=== PATIENT | male | born 1975 | race Caucasian/White ===

== ENCOUNTER 2016-05-13 12:07 | Emergency (ER) | payer OTHER ==
[~2016-05-13] VITALS: Ht 172.7 cm; Wt 62.1 kg
[~2016-05-13 12:07] MED LIST: AMLODIPINE BESY10 M1 PO; XANAX1 M1 PO
[2016-05-13 12:12] VITALS: BP 164/106
[2016-05-13] MEDS ORDERED: VISTARIL50 M1 PO (12:29)
--- NOTE | 2016-05-13 12:30 | ED PSYCHIATRIC COMPLAINT ---
History of Present Illness General Chief Complaint: ETOH/Drug Related Complaint Stated Complaint: XANAX WITHDRAWAL Source: patient, old records Exam Limitations: no limitations Vital Signs & Intake/Output Vital Signs & Intake/Output Vital Signs Date Time Temp Pulse Resp B/P Pulse O2 O2 Flow FiO2 Ox Delivery Rate 05/13 1212 97.7 111 20 164/106 98 Room Air Allergies Coded Allergies: NO KNOWN ALLERGIES (03/28/16) Reconcile Medications Alprazolam (Xanax) 0.5 MG TAB 1 TAB PO BID ANXIETY (Reported) Amlodipine Besylate (Amlodipine) 10 MG TAB 1 TAB PO DAILY HEART (Reported) Hydroxyzine Pamoate (Vistaril) 50 MG CAPSULE 1 CAP PO TID PRN ANXIETY Triage Note: PT REQUESTING DETOX FROM XANAX. LAST DOSE 0100. STATES HE IS SUPPOSED TO TAKE 2 DOSES PER DAY. PT STATES HE IS SHORT BECAUSE HE HAS BEEN TAKING TOO MANY. PT DENIES SI/HI Triage Nurses Notes Reviewed? yes Onset: Gradual Duration: constant Timing: recent history Severity: mild Severity Numbers: 1 HPI: Patient is a 40-year-old male with a past medical history of anxiety who presents to emergency room for concerns of medication refill and which she states that in the past months she's been going through a difficult time with his long-standing girlfriend in which he states that they are going to break up in which he has doubled his dosing of his Xanax. Patient states that he ran out of the medication yesterday. Patient does live with his 2 kids in which she has full custody of. Patient denies any suicidal or homicidal ideation. Patient currently denies any symptoms of withdrawal however he read on the Internet of which all symptoms of other people and was concerned of withdrawal Denies any auditory or visual hallucinations. Denies any illness currently. Denies any illicit drug use denies any alcohol use (ADRIÁN LUTZ) Past History Travel History Traveled to [place] past 21 day No Medical History Any Pertinent Medical History? 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 No (ADRIÁN LUTZ) Review of Systems Review of Systems Constitutional: Reports: no symptoms. EENTM: Reports: no symptoms. Respiratory: Reports: no symptoms. Cardiovascular: Reports: no symptoms. GI: Reports: no symptoms. Genitourinary: Reports: no symptoms. Musculoskeletal: Reports: no symptoms. Skin: Reports: no symptoms. Neurological/Psychological: Reports: see HPI, anxiety. Hematologic/Endocrine: Reports: no symptoms. Immunologic/Allergic: Reports: no symptoms. All Other Systems: Reviewed and Negative (ADRIÁN LTUZ) Physical Exam Physical Exam General Appearance: well developed/nourished, no apparent distress, comfortable Neurological/Psychiatric: no motor/sensory deficits, awake Appearance/Memory/Insight: appropriate appearance, appropriate insight, denies illness Behavoir/Eye Contact/Speech: cooperative, normal speech, good eye contact Thoughts/Hallucinations: normal thought pattern, no apparent hallucination Comments: Well-developed well-nourished person in no acute distress HEENT: Normal EENT exam, extraocular motion intact, no nystagmus. Pupils equally round and reactive to light and accommodation. Nose is atraumatic. External auditory canal and Tympanic membranes clear. Pharynx normal. No swelling or edema. Neck: Supple, no lymphadenopathy, normal range of motion without pain or tenderness Back: Nontender, no CVA tenderness. Cardiovascular: Regular rate and rhythms no murmurs rubs or gallops, normal JVP Respiratory: Chest nontender. No respiratory distress.breath sounds clear to auscultation bilaterally Abdomen: Soft, nontender nondistended, no appreciable organomegaly. Normal bowel sounds. No ascites Extremity: No edema, no calf tenderness to palpation, normal and equal pulses. Neuro: Alert oriented x3, motor sensory normal, cranial nerves II through XII grossly intact. Skin: No appreciable rash on exposed skin, skin is warm and dry. Psych: Mood and affect is normal, memory and judgment is normal. SAD PERSONS Done? patient not suicidal (ADRIÁN LUTZ) Progress Differential Diagnosis: dementia, drug intoxication, drug overdose, drug withdrawal, electrolyte abnormality, encephalitis, hypoglycemia, hypothyroidism, IC hem/mass/tumor, meningitis Plan of Care: Patient currently looks well no apparent distress and is no concerns of anxiety or panic attacks. no concerns of withdrawal symptoms at this time. Patient denies any homicidal or suicidal ideation and shows no signs of intoxication. It is noted through the medical reconciliation the patient was prescribed a 30 day supply of alprazolam on April 30 in which I discussed with patient the importance of compliance He also states that he is willing to try to discontinue the Xanax which I advised patient to try and begin supplemental VISTARIL and if worsening symptoms - to return to emergency room and he will comply. Upon discharge patient looks well no apparent distress and will comply with discharge instructions and had no questions. (ADRIÁN LUTZ) Departure Departure Disposition: HOME OR SELF CARE Condition: Stable Clinical Impression Primary Impression: Anxiety Referrals: JANNA ARIAS (PCP/Family) Additional Instructions: As discussed please take your medications as directed. Follow-up tomorrow with your prescribing doctor for further evaluation and treatment. Begin the prescription of Vistaril to improve your anxiety symptoms. If symptoms worsen or IF YOU develop a new concerning symptom return to emergency room immediately. 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 I have also reviewed all the pertinent lab results and diagnostic results. I agree with the findings and the plan of care as documented in the PA's/LEATHER GOODS MAKER's documentation. [X] I have reviewed the ED Record and agree with the PA's/LEATHER GOODS MAKER's documentation. [] Additions or exceptions (if any) to the PAs/LEATHER GOODS MAKER's note and plan are summarized below: [] (RAFAEL PHILLIPS,JOSE JUAN)
== END 2016-05-13 12:53 ==
LOC: ERH 12:07
DX: F41.9 Anxiety disorder, unspecified (principal)

== ENCOUNTER 2016-06-29 12:57 | Inpatient (IN) | payer OTHER ==
[~2016-06-29] VITALS: Ht 177.8 cm; Wt 63.2 kg
[~2016-06-29 12:57] MED LIST changes: +VISTARIL50 M1 PO
[2016-06-29 13:41] LABS: ABSOLUTE BASOPHIL COUNT 0 /CUMM (0.0-0.2); ABSOLUTE EOSINOPHIL COUNT 0.8 /CUMM (0.0-0.7); ABSOLUTE GRANULOCYTE CT 6.3 /CUMM (1.4-6.5); ABSOLUTE LYMPH COUNT 2.1 /CUMM (1.2-3.4); ABSOLUTE MONOCYTE COUNT 0.6 /CUMM (0.10-0.60); BASOPHIL % 0.3 % (0.0-2.0); EOSINOPHIL % 8.4 % (0-5); GRANULOCYTE % 64.4 % (42.2-75.2); HEMATOCRIT 49.7 % (42-52); MEAN CORPUSCULAR HGB 29.7 PG (27.0-31.0); MEAN CORPUSCULAR HGB CONC 34.2 G/DL (33.0-37.0); MEAN CORPUSCULAR VOLUME 86.8 FL (80.0-94.0); MEAN PLATELET VOLUME 9.3 FL (7.4-10.4); PLATELET COUNT 217 /CUMM (130-400); RBC DISTRIBUTION WIDTH 13.9 % (11.5-14.5); RED BLOOD CELL CT 5.73 /CUMM (4.70-6.10); WHITE BLOOD CELL COUNT 9.9 /CUMM (4.8-10.8)
--- NOTE | 2016-06-29 13:45 | ED CARDIAC/CP/PALPITATIONS ---
History of Present Illness General Chief Complaint: Chest Pain Stated Complaint: C/P Source: patient Exam Limitations: no limitations Allergies Coded Allergies: NO KNOWN ALLERGIES (06/29/16) Reconcile Medications Alprazolam (Xanax) 1 MG TABLET 1 TAB PO BID ANXIETY (Reported) Amitriptyline HCl 25 GM POWDER 1 TAB PO DAILY DEPRESSION (Reported) Amlodipine Besylate 10 MG TABLET 1 TAB PO DAILY HEART (Reported) HASNT TAKEN SINCE 5 MONTHS Aspirin (Aspirin*) 81 MG TAB.CHEW 81 MG PO DAILY heart health Atorvastatin Calcium 40 MG TABLET 40 MG PO 1700 HLD Heparin (Heparin-1/2NS 25,000 Units/500) 25,000 UNIT/500 ML (50 UNIT/ML) IV.SOLN 1 BAG IV ONCE BLOOD THINNER Metoprolol Tartrate 25 MG TABLET 25 MG PO BID htn Nitroglycerin (Nitrostat) 0.3 MG TAB.SUBL 0.4 MG SL Q 5 MINUTES X 3 DOSE PRN CHEST PAIN Nitroglycerin (Nitro-Bid) 2 % OINT...G. 1 GM TOP Q6 chest pain Ticagrelor (Brilinta) 90 MG TABLET 1 TAB PO BID [facility] Triage Note: PT TO ED C/O BURNING C/P SINCE 1000 THIS AM. DENIES N/V/D. NO SOB OR DIFF BREATHING NOTED. 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 ALSO C/O B/L ARM PAIN. Triage Nurses Notes Reviewed? yes HPI: This patient is a 40-year-old male with a past medical history including anxiety presented to the emergency department today for diffuse chest burning. 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 He woke up at about 5:30 this morning with arm pain and chest burning. He reportedly fell back to sleep at about 9:30 and woke up again with worsening chest discomfort. The patient reported that originally he thought he was sore from working on his truck. He reported that the discomfort gets up to an 8 out of 10. He denied any difficulty breathing. The patient has seen a rig builder helper in the past, Dr. Patel, where he had to wear a Holter monitor for palpitations. He reported that he never went to the follow-up appointment. The patient reported that he does feel like his, "lower teeth are hurting." The patient has a significant cardiac history in his family. His mother had a triple bypass at the age of 39. His father had 2 heart attacks before the age of 50. 2 of his grandparents also of heart disease. The patient denied any nausea, vomiting, abdominal pain, fevers, chills, diaphoresis, back pain, or any numbness or tingling in his extremities. He did take an 81 mg baby aspirin this morning. (ANTOINE IRAHETA,KYLAH) Vital Signs & Intake/Output Vital Signs & Intake/Output Vital Signs Date Time Temp Pulse Resp B/P Pulse O2 O2 Flow FiO2 Ox Delivery Rate 06/30 09 75 122/84 06/30 0800 98.4 78 20 110/80 97 Room Air 06/30 0448 97 Room Air 06/30 0130 97 Room Air 06/30 0130 98.7 78 16 142/100 97 Room Air 06/30 0038 70 18 131/90 97 06/30 0000 97.4 79 18 135/85 98 Room Air 06/29 2216 96.5 72 18 161/112 98 Room Air 06/29 2149 78 164/111 06/29 2049 83 173/119 06/29 2010 97.5 83 18 166/114 99 Room Air 06/29 1944 162/110 06/29 1850 97.8 86 18 170/115 98 Room Air 06/29 1734 98.0 84 18 174/100 98 Room Air 06/29 1559 98.2 68 15 146/100 98 Room Air Room Air 06/29 1412 Room Air Room Air 06/29 1353 90 163/102 06/29 1353 86 173/114 06/29 1307 98.5 87 20 176/124 99 Room Air ED Intake and Output 06/30 0000 06/29 1200 Intake Total 0 Output Total Balance 0 Intake, Oral 0 Patient 135 lb Weight Past History Travel History Traveled to [place] past 21 day No Medical History Any Pertinent Medical History? 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 No (ANTOINE IRAHETA,KYLAH) Review of Systems Review of Systems Constitutional: Reports: no symptoms. EENTM: Reports: no symptoms. Respiratory: Reports: no symptoms. Cardiovascular: Reports: see HPI. GI: Reports: no symptoms. Genitourinary: Reports: no symptoms. Musculoskeletal: Reports: see HPI. Skin: Reports: no symptoms. Neurological/Psychological: Reports: no symptoms. All Other Systems: Reviewed and Negative (ANTOINE IRAHETA,KYLAH) Physical Exam Physical Exam Cardiovascular: regular rate/rhythm, normal peripheral pulses, NO MURMURS, RUBS, OR GALLOPS. nO jvd. nO CAROTID BRUITS Comments: Well-developed well-nourished person in no acute distress HEENT: Normal EENT exam, head normocephalic/atraumatic, moist mucous membranes PERRLA bilaterally Neck: Supple. No midline tenderness Back: Normal inspection Respiratory: Chest nontender. No respiratory distress. Speaking in full sentences. Lungs clear to auscultation bilaterally with no wheezes, rales, or rhonchi. No diminished breath sounds Abdomen: Soft, nontender and nondistended Extremity: No edema, no calf tenderness to palpation, normal and equal pulses. Neuro: Alert oriented x3, cranial nerves II through XII grossly intact. Skin: No appreciable rash on exposed skin, skin is warm and dry. Psych: Mood and affect is renetta l Core Measures ACS in differential dx? Yes Severe Sepsis Present: No Septic Shock Present: No (ANTOINE IRAHETA,KYLAH) Progress Differential Diagnosis: AMI, aortic dissection, atrial fibrillation, cholecystitis, costochondritis, hyperkalemia, hyperthyroid, hyperventilation, musculoskeletal pain, myocarditis, pancreatitis, pericarditis, pneumonia, pneumothorax, PSVT, pulmonary embolism, PUD/GERD, PVCs/PACs, sepsis, unstable angina, anxiety Diagnostic Imaging: Viewed by Me: Radiology Read. Discussed w/RAD: Radiology Read. CXR Impression: PATIENT: TONO HERNANDEZ PRESENT AGE: 40 PATIENT ACCOUNT NO: [id number] : 76 LOCATION: [facility] ORDERING PHYSICIAN: KYLAH SCHULTZ PA-C SERVICE DATE: 06/29/16 EXAM TYPE: RAD - XRY-CHEST XRAY, PA AND LATERAL EXAMINATION: XR CHEST CLINICAL INFORMATION: Chest pain COMPARISON: 07/01/2007 TECHNIQUE: 2 views of the chest were obtained. FINDINGS: No focal consolidation, pulmonary edema, or pleural effusion. Stable cardiomediastinal silhouette. IMPRESSION: Unremarkable examination. DICTATED BY: DERRELL COLE MD DATE/TIME DICTATED:06/29/161351 TEMPORARY OFFICE ASSISTANT: AJSON DATE/TIME TRANSCRIBED:06/29/161351 CONFIDENTIAL, DO NOT COPY WITHOUT APPROPRIATE AUTHORIZATION. <Electronically signed in Other Vendor System> SIGNED BY: DERRELL COLE MD 06/29/161356 Initial ED EKG: normal axis, normal intervals, ST elevation, 92 bpm, sinus tachycardia, ST segment elevation in leads V4, and V5 Repeat EKG: unchanged (65 BPM) Hand-Off Endorsed To: HILARIA DUFFY DO ([facility]) Endorsed Time: 827 Pending: labs Comments: 06/29/2016 2:16:47 PM: Discussed this patient with Dr. Duffy. He is requesting that this patient receives sublingual nitroglycerin and aspirin, to review this patient's EKG. The patient reported no relief of his symptoms with nitroglycerin. 06/29/2016 3:23:11 PM: I was at the patient's bedside for reevaluation. Resting comfortably on the stretcher, nontoxic appearing, and in no acute distress. Updated him on the results of his laboratory studies. We will repeat the patient's troponin level and EKG. 06/29/2016 5:30:15 PM: I spoke to the rig builder helper that this patient has seen in the past, Dr. Patel. He stated that if the second troponin is negative and the EKG shows no more acute changes, he can be discharged as long as the patient calls Dr. Patel's office tomorrow. However, he said if there are any changes, to call his phone and he will take the patient on his service. (ANTOINE IRAHETA,KYLAH) Plan of Care: Orders Procedure Date/time Status Nothing by Mouth 06/30 B Active PARTIAL THROMBOPLASTIN TIME 06/30 0930 Active Lab Add-on Test 06/30 0741 Active ECHOCARDIOGRAM 06/30 0721 Active PHOSPHORUS 06/30 0510 Active TROPONIN LEVEL 06/30 0500 Active GLYCOSYLATED HGB 06/30 0500 Active CBC WITHOUT DIFFERENTIAL 06/30 0500 Complete EKG 06/30 0500 Active Heparin Drip- ACS 06/30 0446 Active Vital Signs 06/30 0232 Active Weight 06/30 0231 Complete VTE Mechanical Prophylaxis 06/30 0231 Active Turn and Reposition 06/30 0231 Active Teach/Educate 06/30 023 Active Skin Integrity Protocol 06/30 0231 Active Skin/Pressure Ulcer Assess (Sk 06/30 0231 Active Precautions 06/30 0231 Active Pain Treatment and Response 06/30 0231 Active Nutritional Intake, Monitor 06/30 0231 Active Isolation 06/30 023 Active Patient Care Conference 06/30 0231 Active Activity/Ambulation 06/30 0231 Active PARTIAL THROMBOPLASTIN TIME 06/30 0200 Complete PROTHROMBIN TIME 06/30 0200 Complete ACTIVE SURVEILLANCE NARES 06/30 0110 Active Discharge Patient 06/30 UNK Active TROPONIN LEVEL 06/29 2200 Complete EKG 06/29 2200 Active Pathway - chart 06/29 2139 Active Code Status 06/29 2139 Active Misc Message 06/29 2100 Active ED Holding Orders 06/29 2100 Active Code Status 06/29 2100 Complete Admit to inpatient 06/29 2007 Active Add-on Test (ER Only) 06/29 1943 Active Patient Data 06/29 1852 Active TROPONIN LEVEL 06/29 1710 Complete EKG 06/29 1710 Active EKG 06/29 1510 Active Intake & Output 06/29 1412 Active EKG 06/29 1356 Active Add-on Test (ER Only) 06/29 1343 Active Add-on Test (ER Only) 06/29 1318 Active THYROID STIMULATING HORMONE 06/29 1312 Complete TROPONIN LEVEL 06/29 1312 Complete PARTIAL THROMBOPLASTIN TIME 06/29 1312 Complete MAGNESIUM 06/29 1312 Complete LIPID PANEL 06/29 1312 Complete FREE T4 06/29 1312 Complete COMPREHENSIVE METABOLIC PANEL 06/29 1307 Complete CBC WITHOUT DIFFERENTIAL 06/29 1307 Complete EKG 06/29 1303 Active Pathway - chart 06/29 UNK Active House Staff 06/29 UNK Active ACS Core Measures 06/29 UNK Active Current Medications Sig/Milse Start time Last Medication Dose Stop Time Status Admin Heparin Sodium 5,000 UNIT ONCE ONE 06/29 1900 CAN (Porcine) 06/29 1901 (Heparin Bolus) Laboratory Tests 06/30/16 0510: Phosphorus Pending, Troponin I 13.60 *H, CBC w Diff NO MAN DIFF REQ, RBC 5.33, MCV 88.7, MCH 29.8, RDW 14.0, MPV 9.5, Gran % 66.0, Lymphocytes % 20.3 L, Monocytes % 6.3, Eosinophils % 6.8 H, Basophils % 0.6, Absolute Granulocytes 9.3 H, Absolute Lymphocytes 2.9, Absolute Monocytes 0.9 H, Absolute Eosinophils 0.9, Absolute Basophils 0.1, PUBS MCHC 33.5 06/30/16 0500: Hemoglobin A1c Pending 06/30/16 0200: PT 12.1, INR 1.15, APTT 35 06/29/16 2158: Troponin I 6.06 *H 06/29/16 1710: Troponin I 1.33 *H 06/29/16 1510: Troponin I Cancelled 06/29/16 1312: Anion Gap 12, Estimated GFR > 60, BUN/Creatinine Ratio 20.0, Glucose 138 H, Calcium 9.7, Magnesium 2.0, Total Bilirubin 0.8, AST 31, ALT 36, Alkaline Phosphatase 72, Troponin I 0.02, Total Protein 7.7, Albumin 4.5, Globulin 3.2, Albumin/Globulin Ratio 1.4, Triglycerides 170 H, Cholesterol 208 H, LDL Cholesterol, Calc 130 H, HDL Cholesterol 44, Cholesterol/HDL Ratio 4.7, TSH 0.638, Free T4 1.12, APTT 33, CBC w Diff NO MAN DIFF REQ, RBC 5.73, MCV 86.8, MCH 29.7, RDW 13.9, MPV 9.3, Gran % 64.4, Lymphocytes % 21.1, Monocytes % 5.8, Eosinophils % 8.4 H, Basophils % 0.3, Absolute Granulocytes 6.3, Absolute Lymphocytes 2.1, Absolute Monocytes 0.6, Absolute Eosinophils 0.8, Absolute Basophils 0, PUBS MCHC 34.2 Microbiology 06/30 0145 UPPER RESP: Surveillance Culture - RECD 06/30 011 GI: Surveillance Culture - CAN Cancelled: Cancelled via OE: PT REFUSED Departure Departure Condition: Stable Referrals: JANNA ARIAS (PCP/Family) AIDAN PHILLIPS,Chan VALDEZ Additional Instructions: PLEASE CALL TOMORROW TO MAKE A FOLLOW-UP WITH THE FAMILY PHYSICIAN WHOSE INFORMATION HAS BEEN PROVIDED TO YOU FOR FURTHER EVALUATION. RETURN FOR ANY WORSENING SYMPTOMS OR CONCERNS. Departure Forms: Customer Survey General Discharge Information Prescriptions: Current Visit Scripts Atorvastatin Calcium 40 MG PO 1700 14 Days Metoprolol Tartrate 25 MG PO BID 14 Days Aspirin (Aspirin*) 81 MG PO DAILY 14 Days Nitroglycerin (Nitrostat) 0.4 MG SL Q 5 MINUTES X 3 DOSE PRN CHEST PAIN 1 Days Nitroglycerin (Nitro-Bid) 1 GM TOP Q6 1 Days Heparin (Heparin-1/2NS 25,000 Units/500) 1 BAG IV ONCE 1 Days Ticagrelor (Brilinta) 1 TAB PO BID #60 TAB (KYLAH SCHULTZ PA-C) Departure Disposition: STILL A PATIENT Clinical Impression Primary Impression: Chest pain Qualifiers: Chest pain type: unspecified Qualified Code: R07.9 - Chest pain, unspecified Secondary Impressions: NSTEMI (non-ST elevated myocardial infarction) Admission Note Spoke With: DUSTY MTZ MD Documentation of Exam: Documentation of any treatments & extenuating circumstances including Concerns Regarding Discharge (functional status, medication knowledge or non-compliance, living conditions, etc.) that warrant an admission rather than observation: [The patient needs admission to the ICU for telemetry monitoring, serial troponins, cardiology consultation, inpatient echocardiogram, transfer in the a.m. for cardiac catheterization. I spoke with Dr. Patel and with Dr. Mtz. Dr. Mtz suggests IV heparin and Brilinta.] I have seen and personally examined the patient and I agree with the PAs evaluation. He is a 40-year-old male who presented to the emergency department after chest pressure that began at 10 AM this morning. 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 He has a strong family history of coronary artery disease and is a smoker. His initial EKG showed nonspecific ST segment elevation. It was repeated and was essentially unchanged. He was held in the emergency department for serial troponins. The first troponin was 0.1, his repeat troponin was subsequently elevated. Upon reevaluation in the ED he had 0 out of 10 pain. The case was discussednd and the EKGs, were reviewed with Dr. Mtz. The plan is to admit the patient to the ICU. Transferred for cath in the a.m. PA/[employer] HAZMAT TANKER DRIVER Co-Sign Statement Statement: ED Attending supervision documentation- [X] I saw and evaluated the patient. I have also reviewed all the pertinent lab results and diagnostic results. I agree with the findings and the plan of care as documented in the PA's/[employer] HAZMAT TANKER DRIVER's documentation. [] I have reviewed the ED Record and agree with the PA's/[employer] HAZMAT TANKER DRIVER's documentation. [] Additions or exceptions (if any) to the PAs/[employer] HAZMAT TANKER DRIVER's note and plan are summarized below: [] (TATI GRIFFIN,HILARIA Parada) Critical Care Note Critical Care Note Critical Care Time: 30-74 min (ANTOINE IRAHETA,KYLAH)
--- NOTE | 2016-06-29 13:57 | RADIOLOGY REPORT ---
EXAMINATION: XR CHEST CLINICAL INFORMATION: Chest pain COMPARISON: 07/01/2007 TECHNIQUE: 2 views of the chest were obtained. FINDINGS: No focal consolidation, pulmonary edema, or pleural effusion. Stable cardiomediastinal silhouette. IMPRESSION: Unremarkable examination.
[2016-06-29 20:10] LABS: PTT 33 SEC (25-37)
--- NOTE | 2016-06-29 21:35 | History & Physical ---
JORDON PHILLIPS,[facility] 06/29/162134: General Information and HPI MD Statement: I have seen and personally examined TONO HERNANDEZ and documented this H&P. The patient is a 40 year old M who presented with a patient stated chief complaint of Chest Pain. Source of Information: patient Exam Limitations: no limitations History of Present Illness: 40-year-old male with a past medical history of anxiety and depression, previous history of "palpitations" now presents with a complain of chest pain that started at 5:30 am today. 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 He woke up with bilateral arm soreness and pain at 5:30 am. The pain in the arms continued but he slept through it until he woke up again at 10 am with severe chest pain that was radiating to the left shoulder. He also developed pain in his teeth. He describes the pain as sharp and pressure -like, 8/10, continuous not associated with nausea, vomiting or shortness of breath. He has a strong family history of heart diseases and knew how the pain of a heart attack sounds as he has seen it in his father and mother, therefore came to the ED. In dago past he has been evaluated for his palpitations by Dr. Patel with a Holter Monitor which was normal but he enevr went back for a follow up. He stated Dr. Patel told him to stop taking a medication that he was taking at that time, the name of which he can not recall. He denies any headaches, palpitations, nausea, vomiting, abdominal pain, fever or chills. No chest wall tenderness. He has a strong family history of cardiovascular diseases in his family. His mother has a by pass surgery at the age of 38-39, his father had 2 heart attacks and 5 stents before the age of 50, both his grandfathers if heart attacks at ages 50s. In the ED he received SL nitro, ASA 325 mg and lopressor IV after which his pain subsided. He continued to have arm soreness but no chest pain. HIs first trop was negative at 0.02 but the second one was 1.33. His EKG has [address] elevations from the baseline with some reciprocal changes. The second EKG that corresponds to the positive trop has elevation of J point as well. Allergies/Medications Allergies: Coded Allergies: NO KNOWN ALLERGIES (06/29/16) Home Med list Alprazolam (Xanax) 1 MG TABLET 1 TAB PO BID ANXIETY (Reported) Amitriptyline HCl 25 GM POWDER 1 TAB PO DAILY DEPRESSION (Reported) Amlodipine Besylate 10 MG TABLET 1 TAB PO DAILY HEART (Reported) HASNT TAKEN SINCE 5 MONTHS Aspirin (Aspirin*) 81 MG TAB.CHEW 81 MG PO DAILY heart health Atorvastatin Calcium 40 MG TABLET 40 MG PO 1700 HLD Heparin (Heparin-1/2NS 25,000 Units/500) 25,000 UNIT/500 ML (50 UNIT/ML) IV.SOLN 1 BAG IV ONCE BLOOD THINNER Metoprolol Tartrate 25 MG TABLET 25 MG PO BID htn Nitroglycerin (Nitrostat) 0.3 MG TAB.SUBL 0.4 MG SL Q 5 MINUTES X 3 DOSE PRN CHEST PAIN Nitroglycerin (Nitro-Bid) 2 % OINT...G. 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 MOTHER (By pass surgery at age 39). grand fathers (Both grand fathers with heart attacks around ages 50). Psychosocial History Where do you live? Home Services at Home: None Primary Language: Andorran Smoking Status: Current Everyday Smoker (20-30 ciggs (home made)) ETOH Use: denies use Illicit Drug Use: denies illicit drug use Living Will? no Functional Ability ADLs Independent: dressing, eating, toileting, bathing. Ambulation: independent IADLs Independent: shopping, housework, finances, food prep, telephone, transportation , medication admin. Employment History Employment Employed Profession/Employer [employer] Review of Systems Review of Systems Constitutional: Reports: see HPI. EENTM: Reports: no symptoms. Cardiovascular: Reports: chest pain. Denies: edema, orthopena, palpitations, peripheral edema. Respiratory: Reports: no symptoms. GI: Reports: no symptoms. Genitourinary: Reports: no symptoms. Musculoskeletal: Reports: see HPI. Skin: Reports: no symptoms. Neurological/Psychological: Reports: anxiety. Hematologic/Endocrine: Reports: no symptoms. Immunologic/Allergic: Reports: no symptoms. Exam & Diagnostic Data Last 24 Hrs of Vital Signs/I&O Vital Signs Date Time Temp Pulse Resp B/P Pulse O2 O2 Flow FiO2 Ox Delivery Rate 06/30 0038 70 18 131/90 97 06/30 0000 97.4 79 18 135/85 98 Room Air 06/29 2216 96.5 72 18 161/112 98 Room Air 06/29 2149 78 164/111 06/29 2049 83 173/119 06/29 2010 97.5 83 18 166/114 99 Room Air 06/29 1944 162/110 06/29 1850 97.8 86 18 170/115 98 Room Air 06/29 1734 98.0 84 18 174/100 98 Room Air 06/29 1559 98.2 68 15 146/100 98 Room Air Room Air 06/29 1412 Room Air Room Air 06/29 1353 90 163/102 06/29 1353 86 173/114 06/29 1307 98.5 87 20 176/124 99 Room Air Intake & Output 06/30 0800 06/30 0000 06/29 1600 Intake Total 0 Output Total Balance 0 Intake, Oral 0 Patient 135 lb Weight Physical Exam General Appearance Alert, Oriented X3, Cooperative, No Acute Distress Skin No Rashes, No Breakdown, No Significant Lesion HEENT Atraumatic, PERRLA, EOMI, Mucous Membr. moist/pink Neck Supple, No JVD Lymphatic Cervical nl Cardiovascular Regular Rate, Normal S1, Normal S2, No Murmurs Lungs Clear to Auscultation, Normal Air Movement Abdomen Normal Bowel Sounds, Soft, No Tenderness, No Hepatospenomegaly Neurological Normal Speech, Strength at 5/5 X4 Ext, Normal Tone, Sensation Intact Extremities No Clubbing, No Cyanosis, No Edema, Normal Pulses Vascular Normal Pulses, Pulses Symmetrical Last 24 Hrs of Labs/Kristopher: Laboratory Tests 06/29/168: Troponin I 6.06 *H 06/29/16 1710: Troponin I 1.33 *H 06/29/16 1510: Troponin I Cancelled 06/29/16 1312: Anion Gap 12, Estimated GFR > 60, BUN/Creatinine Ratio 20.0, Glucose 138 H, Calcium 9.7, Magnesium 2.0, Total Bilirubin 0.8, AST 31, ALT 36, Alkaline Phosphatase 72, Troponin I 0.02, Total Protein 7.7, Albumin 4.5, Globulin 3.2, Albumin/Globulin Ratio 1.4, Triglycerides 170 H, Cholesterol 208 H, LDL Cholesterol, Calc 130 H, HDL Cholesterol 44, Cholesterol/HDL Ratio 4.7, TSH 0.638, Free T4 1.12, APTT 33, CBC w Diff NO MAN DIFF REQ, RBC 5.73, MCV 86.8, MCH 29.7, RDW 13.9, MPV 9.3, Gran % 64.4, Lymphocytes % 21.1, Monocytes % 5.8, Eosinophils % 8.4 H, Basophils % 0.3, Absolute Granulocytes 6.3, Absolute Lymphocytes 2.1, Absolute Monocytes 0.6, Absolute Eosinophils 0.8, Absolute Basophils 0, PUBS MCHC 34.2 Microbiology 06/30 109 UPPER RESP: Surveillance Culture - ORD 06/30 109 GI: Surveillance Culture - ORD Diagnostic Data EKG Results 1 mm STElevation in leads V2-V5, reciprocal changes in lead II CXR Results No focal consolidation, pulmonary edema, or pleural effusion. Stable cardiomediastinal silhouette. IMPRESSION: Unremarkable examination. Assessment/Plan Assessment: 40-year-old male with a past medical history of anxiety and depression, previous history of "palpitations" now presents with a complain of chest pain, 8/10, continuous, with positive 2nd trop of 1.33 and VANESSA of 1 mm in leads V2-V5 with reciprocal changes in lead II, being admitted to ICU for management of ACS. 1. Chest pain 2. Hypertension 3. Anxiety 4. Depression Plan: Admit to ICU Vitals as per ICU protocol 1. Chest pain: Jack patient had continuous chest pain prior to coming to [facility] ED, which settled with Nitro Sl x1, first trop negative with the second one being 1.33, EKG shows ST elevation to 1mm which does not meet criteria of STEMI but had reciprocal changes in lead II, is young, current smoker, with a very strong family history of MD at ages < 50, second EKG that showed elevating J point, and would definitely benefit from cardiac cath early rather than later. - IV heparin started in the ED after a negative guaic - Received Brilinta 180 mg once in the ED - Will start Metoprolol 25 mg Po BID - Will start Atorvastatin 40 mg PO Daily - Will start ASA 81 mg Po Daily - Will also start Nitro paste 1 mg Q6 if the patient has on going chest pain - Will check trops and EKG again at 10 pm and check until trends down - The patient should be transferred for cath soon - Discussed the entire plan with Dr. Mtz. EKGs were faxed to him with updates on the trops 2. Hypertension: - 167/98 upon evluation - received IV lopressor and 5 mg of IV hydralazine - Will start on Metoprolol 25 mg PO BID - The patient stated he used to take Amlodipine but has not taken it since the past 5 months. According to him his blood pressure varies with it being normal at times and at times it is high, which he associated it with his anxiety. He also mentioned his blood pressure normalizes when he takes Xanax 3. Anxiety: - Will continue with Xanax 1 mg BID 4. Depression: - He uses Amitriptyline but is not regular with it 5. NPO for possible cath in am 6. Pain pathway: mild moderate and severe 7. DVT PPx: on IV heparin 8. FULL CODE status Addendum at 11 pm: Patient's 3rd trop increased to 6.06 EKG remains the same with mild [address] elevation in leads V2-V5 Patient is having active chest pain, substernal, 6/10 Nitroglycerine given stat that helped the pain but he developed a head ache Dr. Mtz updated about the trop, EKG and active chest pain. He recommends if the pain does not settle to call him back again and possible transfer, otherwise he should be monitored in the ICU The patient's pain resolved after Nitro SL He has been started on Nitro paste 1 mg Q6. BP 131/90 Addendum at 12:35 am: The ED nurse called that the patient had an 8 beat run of V tach and is experiencing palpitations. No active chest pain, vitals stable. Night team will call Dr. Mtz with the update. As Ranked By This Provider Problem List: 1. Chest pain Qualifiers Chest pain type: unspecified Qualified Code: R07.9 - Chest pain, unspecified 2. Anxiety 3. Depression Core Measures/Miscellaneous Acute Coronary Syndrome ACS Diagnosis: Yes CANDY/ARB For EF <40% No No CANDY/ARB d/t EF unknown ASA W/I 24hr of admit Yes Beta-Arnold W/I 24hrs Yes LDL assessed W/I 24 hrs Yes Currently on Statin Yes Cerebrovascular Accident CVA/TIA Diagnosis: No Congestive Heart Failure CHF Diagnosis: No Venous Thromboembolism VTE Risk Factors: Acute medical illness, Smoking VTE Prophylaxis Ordered Inpt: Pharm- Heparin No Mech VTE prophylaxis d/t: No contraindications No VTE Pharm Prophylaxis d/t: No contraindications VTE Diagnosis: No VTE Type: NONE VTE Confirmed by (Test): NONE Severe Sepsis Severe Sepsis Present: No Septic Shock Septic Shock Present: No Miscellaneous Documentation Attending Case Discussed With: Dr. Mtz Primary Care Physician: JANNA ARIAS Patient sees these Specialists Dr. Patel cardiology Level of Patient Care: Critical Care (CRI) Consults Needed: Consulting Specialty: Cardiology Consulting Physician: Dr. Mtz Reason for Consult: ACS Resident Review Statement Resident Statement: examined this patient, discussed with nutrition internship, agreed with nutrition internship, reviewed EMR data (avail), reviewed images, amended to note Other Findings: Same as Above DUSTY MTZ MD 06/30/16 0852: Attending MD Review Statement Attending Statement Attending MD Statement: examined this patient, discuss w/resident/PA/BUSSER, discussed with family, reviewed EMR data (avail), discussed with nursing, discussed with case mgmt, reviewed images, amended to note Attending Assessment/Plan: The patient is seen and examined independently. Case discussed with house staff. Agree with housestaff note except as noted below. The patient is a 40-year-old male who presents with chest discomfort. He was previously evaluated in the office by Dr. Patel for palpitations, and workup was negative at that time. He has a history of hypertension, however he has not been compliant with his hypertension medications. He notes that on the day prior to admission he did very strenuous work. On the morning of admission he awoke and noted pain in his arms which she attributed to the prior work. He subsequently developed mild substernal chest pressure which was a 2 out of 10. He also noted discomfort in his jaw and teeth at that time. He presented to the emergency department where the pain resolved. He was noted to have minimal ST elevation which was interpreted as early repolarization. His initial troponin was negative. He was initially monitored in the emergency department with the plan to discharge to home if the second troponin was negative. The second troponin was noted to be positive. The patient was pain-free at that time, and he was admitted for non-ST elevation myocardial infarction. He had a second episode of chest discomfort at 11:00 PM which resolved after sublingual nitroglycerin admission, and he has been pain-free since that time. He is an active smoker. He has a very strong family history of coronary artery disease in both parents. No shortness of breath. No diaphoresis. No lightheadedness or dizziness. No nausea or vomiting. Review of systems: No fever. No chills. No rash. No tremor. No melena. All other systems were reviewed, and were noted to be negative. Vital Signs Date Time Temp Pulse Resp B/P Pulse O2 O2 Flow FiO2 Ox Delivery Rate 06/30 0800 98.4 78 20 110/80 97 Room Air 06/30 0448 97 Room Air 06/30 0130 97 Room Air 06/30 0130 98.7 78 16 142/100 97 Room Air 06/30 0038 70 18 131/90 97 06/30 0000 97.4 79 18 135/85 98 Room Air 06/29 2216 96.5 72 18 161/112 98 Room Air 06/29 2149 78 164/111 06/29 2049 83 173/119 06/29 2010 97.5 83 18 166/114 99 Room Air 06/29 1944 162/110 06/29 1850 97.8 86 18 170/115 98 Room Air 06/29 1734 98.0 84 18 174/100 98 Room Air 06/29 1559 98.2 68 15 146/100 98 Room Air Room Air 06/29 1412 Room Air Room Air 06/29 1353 90 163/102 06/29 1353 86 173/114 06/29 1307 98.5 87 20 176/124 99 Room Air Physical examination: Gen: The patient is in no acute distress HEENT: Normal nose, ears, and oropharynx. Pupils equal bilaterally. Conjunctiva normal. Neck: Supple with no JVD, no masses, and no thyromegaly Lungs: Clear to auscultation with normal respiratory effort Heart: RRR, S1, S2, no murmurs. No peripheral edema, 2+ pulses in the lower extremities bilaterally Abdomen: Soft, nontender, no masses. No hepatomegaly. No splenomegaly Extremities: No clubbing or cyanosis. Normal muscle strength in the upper and lower extremities Skin: Normal skin turgor with no skin ulcers or lesions noted. Neuro: Cranial nerves intact. Sensation intact Psych: Alert and oriented 3 with appropriate affect EKG tracings are independently reviewed, and show sinus rhythm with borderline ST elevation in the anterior leads which is less than 0.5 mm. Laboratory Tests 06/30 06/30 06/30 0510 0500 0200 Chemistry Hemoglobin A1c Pending Phosphorus (2.5 - 4.5 mg/dL) Pending Troponin I (<0.11 ng/ml) 13.60 *H Coagulation PT (9.4 - 12.5 SEC) 12.1 INR (0.90 - 1.17) 1.15 APTT (25 - 37 SEC) 35 Hematology CBC w Diff NO MAN DIFF REQ WBC (4.8 - 10.8 /CUMM) 14.0 H RBC (4.70 - 6.10 /CUMM) 5.33 Hgb (14.0 - 18.0 G/DL) 15.9 Hct (42 - 52 %) 47.3 MCV (80.0 - 94.0 FL) 88.7 MCH (27.0 - 31.0 PG) 29.8 RDW (11.5 - 14.5 %) 14.0 Plt Count (130 - 400 /CUMM) 208 MPV (7.4 - 10.4 FL) 9.5 Gran % (42.2 - 75.2 %) 66.0 Lymphocytes % (20.5 - 51.1 %) 20.3 L Monocytes % (1.7 - 9.3 %) 6.3 Eosinophils % (0 - 5 %) 6.8 H Basophils % (0.0 - 2.0 %) 0.6 Absolute Granulocytes (1.4 - 6.5 /CUMM) 9.3 H Absolute Lymphocytes (1.2 - 3.4 /CUMM) 2.9 Absolute Monocytes (0.10 - 0.60 /CUMM) 0.9 H Absolute Eosinophils (0.0 - 0.7 /CUMM) 0.9 Absolute Basophils (0.0 - 0.2 /CUMM) 0.1 PUBS MCHC (33.0 - 37.0 G/DL) 33.5 06/29 06/29 06/29 2158 1710 1510 Chemistry Troponin I (<0.11 ng/ml) 6.06 *H 1.33 *H Cancelled 06/29 1312 Chemistry Sodium (137 - 145 mmol/L) 139 Potassium (3.5 - 5.1 mmol/L) 3.7 Chloride (98 - 107 mmol/L) 102 Carbon Dioxide (22 - 30 mmol/L) 25 Anion Gap (5 - 16) 12 BUN (9 - 20 mg/dL) 18 Creatinine (0.7 - 1.2 mg/dL) 0.9 Estimated GFR (>60 ml/min) > 60 BUN/Creatinine Ratio (7 - 25 %) 20.0 Glucose (65 - 99 mg/dL) 138 H Calcium (8.4 - 10.2 mg/dL) 9.7 Magnesium (1.6 - 2.3 mg/dL) 2.0 Total Bilirubin (0.2 - 1.3 mg/dL) 0.8 AST (17 - 59 U/L) 31 ALT (21 - 72 U/L) 36 Alkaline Phosphatase (< 127 U/L) 72 Troponin I (<0.11 ng/ml) 0.02 Total Protein (6.3 - 8.2 g/dL) 7.7 Albumin (3.5 - 5.0 g/dL) 4.5 Globulin (1.9 - 4.2 gm/dL) 3.2 Albumin/Globulin Ratio (1.1 - 2.2 %) 1.4 Triglycerides (<150 mg/dL) 170 H Cholesterol (< 200 MG/DL) 208 H LDL Cholesterol, Calc (65 - 129 MG/DL) 130 H HDL Cholesterol (40 - 60 mg/dL) 44 Cholesterol/HDL Ratio (0.00 - 4.88 %) 4.7 TSH (0.270 - 4.200 uIU/mL) 0.638 Free T4 (0.79 - 2.35 ng/dL) 1.12 Coagulation APTT (25 - 37 SEC) 33 Hematology CBC w Diff NO MAN DIFF REQ WBC (4.8 - 10.8 /CUMM) 9.9 RBC (4.70 - 6.10 /CUMM) 5.73 Hgb (14.0 - 18.0 G/DL) 17.0 Hct (42 - 52 %) 49.7 MCV (80.0 - 94.0 FL) 86.8 MCH (27.0 - 31.0 PG) 29.7 RDW (11.5 - 14.5 %) 13.9 Plt Count (130 - 400 /CUMM) 217 MPV (7.4 - 10.4 FL) 9.3 Gran % (42.2 - 75.2 %) 64.4 Lymphocytes % (20.5 - 51.1 %) 21.1 Monocytes % (1.7 - 9.3 %) 5.8 Eosinophils % (0 - 5 %) 8.4 H Basophils % (0.0 - 2.0 %) 0.3 Absolute Granulocytes (1.4 - 6.5 /CUMM) 6.3 Absolute Lymphocytes (1.2 - 3.4 /CUMM) 2.1 Absolute Monocytes (0.10 - 0.60 /CUMM) 0.6 Absolute Eosinophils (0.0 - 0.7 /CUMM) 0.8 Absolute Basophils (0.0 - 0.2 /CUMM) 0 PUBS MCHC (33.0 - 37.0 G/DL) 34.2 Assessment: The patient is a 40-year-old male who is followed in the office by Dr. Patel. He resides with bilateral arm pain and chest pressure radiating to the jaw. EKG showed minimal ST abnormality which did not meet criteria for STEMI. The patient ruled in for non-ST elevation myocardial infarction with peak troponin of 13.6. He is currently pain-free and asymptomatic. Blood pressure was noted to be elevated on admission, and is now under control. Plan: * IV heparin has been started. * Continue metoprolol 25 mg po twice a day * Continue aspirin and Brilinta, which were started in the emergency department. * Transfer to [facility] for cardiac catheterization and possible percutaneous intervention. * The patient was counselled to quit smoking * IV heparin has been started. * Continue metoprolol 25 mg po twice a day * Continue aspirin and Brilinta, which were started in the emergency department. * Transfer to [facility] for cardiac catheterization and possible percutaneous intervention. * The patient was counselled to quit smoking
[2016-06-29] MEDS ORDERED: [UNRECOGNIZED DRUG - OTHER] PO (22:23)
[2016-06-30 01:30] VITALS: BP 142/100
[2016-06-30 02:33] LABS: PTT 35 SEC (25-37)
[2016-06-30 06:14] LABS: ABSOLUTE BASOPHIL COUNT 0.1 /CUMM (0.0-0.2); ABSOLUTE EOSINOPHIL COUNT 0.9 /CUMM (0.0-0.7); ABSOLUTE GRANULOCYTE CT 9.3 /CUMM (1.4-6.5); ABSOLUTE LYMPH COUNT 2.9 /CUMM (1.2-3.4); ABSOLUTE MONOCYTE COUNT 0.9 /CUMM (0.10-0.60); BASOPHIL % 0.6 % (0.0-2.0); EOSINOPHIL % 6.8 % (0-5); HEMATOCRIT 47.3 % (42-52); MEAN CORPUSCULAR HGB 29.8 PG (27.0-31.0); MEAN CORPUSCULAR HGB CONC 33.5 G/DL (33.0-37.0); MEAN CORPUSCULAR VOLUME 88.7 FL (80.0-94.0); MEAN PLATELET VOLUME 9.5 FL (7.4-10.4); PLATELET COUNT 208 /CUMM (130-400); RED BLOOD CELL CT 5.33 /CUMM (4.70-6.10)
--- NOTE | 2016-06-30 07:19 | PN- Resident CRCU ---
Subjective HPI/CRCU Issues: No acute events overnight. Patient seen and examined this morning. Chest pain has resolved. Patient continues to have intermittent palpitations. Objective Vital Signs & I&O Last 8 Hrs of Vitals and I&O: Vital Signs Date Time Temp Pulse Resp B/P Pulse O2 O2 Flow FiO2 Ox Delivery Rate 06/30 0448 97 Room Air 06/30 0130 97 Room Air 06/30 0130 98.7 78 16 142/100 97 Room Air 06/30 0038 70 18 131/90 97 06/30 0000 97.4 79 18 135/85 98 Room Air 06/29 2216 96.5 72 18 161/112 98 Room Air 06/29 2149 78 164/111 06/29 2049 83 173/119 06/29 2010 97.5 83 18 166/114 99 Room Air 06/29 1944 162/110 06/29 1850 97.8 86 18 170/115 98 Room Air 06/29 1734 98.0 84 18 174/100 98 Room Air 06/29 1559 98.2 68 15 146/100 98 Room Air Room Air 06/29 1412 Room Air Room Air 06/29 1353 90 163/102 06/29 1353 86 173/114 06/29 1307 98.5 87 20 176/124 99 Room Air Exam General Appearance: no apparent distress, alert, awake Head: atraumatic, normal appearance Ears, Nose, Throat: moist mucus membranes Neck: supple Respiratory: lungs clear Cardiovascular: regular rate/rhythm, normal S1 and S2, no murmurs, rubs or gallops Gastrointestinal: soft, non-tender, positive bowel sounds Extremities: no edema, crepitus and slight swelling noted to right arm IV site, no tenderness Cranial Nerves: grossly normal Skin: normal color, warm/dry Current Medications: Current Medications Sig/Miles Start time Last Medication Dose Route Stop Time Status Admin Acetaminophen 650 MG Q6P PRN 06/29 2145 AC 06/30 PO 0345 Alprazolam 1 MG BID 06/30 1000 AC PO 07/07 0959 Alprazolam 1 MG DAILY 06/30 1000 AC 06/30 PO 07/07 0959 0756 Alprazolam 0 .STK-MED ONE 06/30 0117 DC PO Alprazolam 1 MG ONCE ONE 06/30 0115 DC 06/30 PO 06/30 011 0116 Alprazolam 0 .STK-MED ONE 06/29 192 DC PO Alprazolam 0.5 MG ONCE ONE 06/29 1900 DC 06/29 PO 06/29 190 194 Amitriptyline HCl 25 MG AT BEDTIME 06/30 2200 AC PO Aspirin 81 MG DAILY 06/30 1000 AC PO Aspirin 0 .STK-MED ONE 06/29 1342 DC PO Aspirin 325 MG ONCE ONE 06/29 1330 DC 06/29 PO 06/29 1331 1342 Atorvastatin Calcium 40 MG 1700 06/30 1700 AC PO Heparin Sodium 4,695 UNIT BOLUS ONE 06/30 0330 DC 06/30 (Porcine) IV 06/30 033 0340 Heparin Sodium 0 .STK-MED ONE 06/29 192 DC (Porcine) .ROUTE Heparin Sodium 5,000 UNIT ONCE ONE 06/29 1900 CAN (Porcine) IV 06/29 190 Heparin Sodium 25,000 UNIT Q24H 06/29 1900 AC 06/29 (Porcine) IV 2009 Sodium Chloride 500 ML Heparin Sodium 4,000 UNIT ONCE ONE 06/29 190 DC 06/29 (Porcine) IV 06/29 190 2009 Hydralazine HCl 0 .STK-MED ONE 06/29 2047 DC .ROUTE Hydralazine HCl 5 MG ONCE ONE 06/29 204 DC 06/29 IV 06/29 Metoprolol Tartrate 25 MG BID 06/29 2199 AC 06/29 PO 2149 Metoprolol Tartrate 0 .STK-MED ONE 06/29 214 DC PO Metoprolol Tartrate 0 .STK-MED ONE 06/29 192 DC IV Metoprolol Tartrate 5 MG ONCE ONE 06/29 190 DC 06/29 IV 06/29 190 194 Nitroglycerin 1 GM Q6 06/29 2359 AC 06/30 TOP 0532 Nitroglycerin 0.4 MG Q 5 MINUTES X 3 DO.. 06/29 2300 AC 06/29 SL 2258 Nitroglycerin 0 .STK-MED ONE 06/29 225 DC TOP Nitroglycerin 0 .STK-MED ONE 06/29 2258 DC SL Nitroglycerin 0.4 MG ONCE ONE 06/29 1345 DC 06/29 SL 06/29 1346 1350 Oxycodone/ 1 TAB Q6P PRN 06/29 2145 AC Acetaminophen PO Oxycodone/ 2 TAB Q6P PRN 06/29 2144 AC Acetaminophen PO Ticagrelor 0 .STK-MED ONE 06/29 1922 DC PO Ticagrelor 180 MG ONCE ONE 06/29 1899 DC 06/29 PO 06/29 Results Results: Laboratory Tests 06/30 06/30 06/30 0510 0500 0200 Chemistry Hemoglobin A1c Pending Phosphorus (2.5 - 4.5 mg/dL) Pending Troponin I (<0.11 ng/ml) 13.60 *H Coagulation PT (9.4 - 12.5 SEC) Pending INR (0.90 - 1.17) Pending APTT (25 - 37 SEC) 35 Hematology CBC w Diff NO MAN DIFF REQ WBC (4.8 - 10.8 /CUMM) 14.0 H RBC (4.70 - 6.10 /CUMM) 5.33 Hgb (14.0 - 18.0 G/DL) 15.9 Hct (42 - 52 %) 47.3 MCV (80.0 - 94.0 FL) 88.7 MCH (27.0 - 31.0 PG) 29.8 RDW (11.5 - 14.5 %) 14.0 Plt Count (130 - 400 /CUMM) 208 MPV (7.4 - 10.4 FL) 9.5 Gran % (42.2 - 75.2 %) 66.0 Lymphocytes % (20.5 - 51.1 %) 20.3 L Monocytes % (1.7 - 9.3 %) 6.3 Eosinophils % (0 - 5 %) 6.8 H Basophils % (0.0 - 2.0 %) 0.6 Absolute Granulocytes (1.4 - 6.5 /CUMM) 9.3 H Absolute Lymphocytes (1.2 - 3.4 /CUMM) 2.9 Absolute Monocytes (0.10 - 0.60 /CUMM) 0.9 H Absolute Eosinophils (0.0 - 0.7 /CUMM) 0.9 Absolute Basophils (0.0 - 0.2 /CUMM) 0.1 PUBS MCHC (33.0 - 37.0 G/DL) 33.5 06/29 06/29 06/29 2158 1710 1510 Chemistry Troponin I (<0.11 ng/ml) 6.06 *H 1.33 *H Cancelled 06/29 1312 Chemistry Sodium (137 - 145 mmol/L) 139 Potassium (3.5 - 5.1 mmol/L) 3.7 Chloride (98 - 107 mmol/L) 102 Carbon Dioxide (22 - 30 mmol/L) 25 Anion Gap (5 - 16) 12 BUN (9 - 20 mg/dL) 18 Creatinine (0.7 - 1.2 mg/dL) 0.9 Estimated GFR (>60 ml/min) > 60 BUN/Creatinine Ratio (7 - 25 %) 20.0 Glucose (65 - 99 mg/dL) 138 H Calcium (8.4 - 10.2 mg/dL) 9.7 Magnesium (1.6 - 2.3 mg/dL) 2.0 Total Bilirubin (0.2 - 1.3 mg/dL) 0.8 AST (17 - 59 U/L) 31 ALT (21 - 72 U/L) 36 Alkaline Phosphatase (< 127 U/L) 72 Troponin I (<0.11 ng/ml) 0.02 Total Protein (6.3 - 8.2 g/dL) 7.7 Albumin (3.5 - 5.0 g/dL) 4.5 Globulin (1.9 - 4.2 gm/dL) 3.2 Albumin/Globulin Ratio (1.1 - 2.2 %) 1.4 Triglycerides (<150 mg/dL) 170 H Cholesterol (< 200 MG/DL) 208 H LDL Cholesterol, Calc (65 - 129 MG/DL) 130 H HDL Cholesterol (40 - 60 mg/dL) 44 Cholesterol/HDL Ratio (0.00 - 4.88 %) 4.7 TSH (0.270 - 4.200 uIU/mL) 0.638 Free T4 (0.79 - 2.35 ng/dL) 1.12 Coagulation APTT (25 - 37 SEC) 33 Hematology CBC w Diff NO MAN DIFF REQ WBC (4.8 - 10.8 /CUMM) 9.9 RBC (4.70 - 6.10 /CUMM) 5.73 Hgb (14.0 - 18.0 G/DL) 17.0 Hct (42 - 52 %) 49.7 MCV (80.0 - 94.0 FL) 86.8 MCH (27.0 - 31.0 PG) 29.7 RDW (11.5 - 14.5 %) 13.9 Plt Count (130 - 400 /CUMM) 217 MPV (7.4 - 10.4 FL) 9.3 Gran % (42.2 - 75.2 %) 64.4 Lymphocytes % (20.5 - 51.1 %) 21.1 Monocytes % (1.7 - 9.3 %) 5.8 Eosinophils % (0 - 5 %) 8.4 H Basophils % (0.0 - 2.0 %) 0.3 Absolute Granulocytes (1.4 - 6.5 /CUMM) 6.3 Absolute Lymphocytes (1.2 - 3.4 /CUMM) 2.1 Absolute Monocytes (0.10 - 0.60 /CUMM) 0.6 Absolute Eosinophils (0.0 - 0.7 /CUMM) 0.8 Absolute Basophils (0.0 - 0.2 /CUMM) 0 PUBS MCHC (33.0 - 37.0 G/DL) 34.2 Impression/Plan Impression/Problem List Impression: 40 y/o M current smoker with PMHx of anxiety and depression and a strongly positive family history of CAD and early [place] who presents with chest pain. Problem List: 1. NSTEMI (non-ST elevated myocardial infarction) 2. Current smoker 3. Anxiety 4. Depression Pain Ratin Tomorrow's Labs & Rationales: None - patient will be transferred for cardiac catheterization Plan Respiratory: Stable. Satting well on room air with no shortness of breath. Infectious Diseases: Afebrile. Mild leukocytosis to 14 this morning, most likely reactive. Cardiovascular: #NSTEMI: EKG showed minimal ST elevations in leads V2-V5 which did not meet the criteria for STEMI. Initial set of troponin 0.02, but have uptrended to 13.6. Currently asymptomatic. * Transfer to [facility] for cardiac cath and possible PCI. * Continue nitroglycerin ointment as well as sublingual nitroglycerin PRN for chest pain. * Continue IV heparin. * Continue aspirin 81 mg PO daily, metoprolol 25 mg PO BID, Brilinta 90 mg PO BID and atorvastatin 40 mg PO daily. #HTN: Elevated on admission, but improved with IV pushes of hydralazine and metoprolol. Now well-controlled. * Continue metoprolol 25 mg PO BID. Hematology: H/H stable. On IV heparin ip. Metabolic: No issues. Alimentary: NPO Neurological: #Depression/anxiety: * Continue prior to admission Xanax 1 mg PO BID and amitriptyline 25 mg PO QHS. DVT/Prophylaxis: mechanical, pharmacological Code Status: Full Code
--- NOTE | 2016-06-30 07:24 | Discharge Summary ---
Visit Information Visit Dates Admission Date: 06/29/16 Discharge Date: 06/30/16 Hospital Course Course Attending Physician: Chan BERMUDEZ MD Primary Care Physician: JANNA ARIAS Consulting Request: Consulting Specialty: Cardiology Consulting Physician: Dr. Rodríguez Reason for Consult: ACS Hospital Course: This is 40-year-old male with a past medical history of anxiety and depression, previous history of "palpitations" now presents with a complain of chest pain, 8 /10, continuous, with positive 2nd trop of 1.33 and VANESSA of 1 mm in leads V2-V5 with reciprocal changes in lead II. Problem list: -NSTEMI Hospital course: Patient was admitted to the critical care unit, after he was started on heparin drip, nitroglycerin, metoprolol, statin and aspirin along with oxygen supplement. His troponin keep trending up from 1.33 to 6.06 to 13.6. the patient after the nitroglycerin did not complain of any additional chest pain. The patient had strong family history of acute coronary syndrome before age of 40 year, his mother had bypass surgery and his father had 2 heart attack and 5 stents before the age of 50 also both his grandfathers if heart attacks at ages 50s. The patient had elevated lipid panel that need to be repeated with the patient fasting. After discussion with the training executive patient will be transferred for cardiac catheterization. Imaging: EXAMINATION: XR CHEST FINDINGS: No focal consolidation, pulmonary edema, or pleural effusion. Stable cardiomediastinal silhouette. IMPRESSION: Unremarkable examination. Allergies: Coded Allergies: NO KNOWN ALLERGIES (06/29/16) Disposition Summary Disposition Principal Diagnosis: NSTEMI Additional Diagnosis: Anxiety Depression Discharge Disposition: other general hospital Discharge Instructions General Discharge Information Code Status: Full Code Patient's Diet: LiquidPiston diet Patient's Activity: full active Follow-Up Instructions/Appts: Please follow up with your PCP after discharge Please follow up with your training executive after discharge. Medications at Discharge Discharge Medications: Continue taking these medications: Amlodipine Besylate (Amlodipine Besylate) 10 MG TABLET 1 Tablet ORAL DAILY Instructions: HASNT TAKEN SINCE 5 MONTHS Comments: NOT TAKEN WHILE IN HOSPITAL Alprazolam (Xanax) 1 MG TABLET 1 Tablet ORAL TWICE DAILY Comments: Last Taken: 06-30-16 Time: 0800 Amitriptyline HCl (Amitriptyline HCl) 25 GM POWDER 1 Tablet ORAL DAILY Comments: NOT TAKEN WHILE IN HOSPITAL Start taking the following new medications: Ticagrelor (Brilinta) 90 MG TABLET 1 Tablet ORAL TWICE DAILY Qty = 60 No Refills Atorvastatin Calcium (Atorvastatin Calcium) 40 MG TABLET 40 Milligram ORAL 5 PM Days = 14 No Refills Comments: NOT TAKEN IN HOSPITAL Metoprolol Tartrate (Metoprolol Tartrate) 25 MG TABLET 25 Milligram ORAL TWICE DAILY Days = 14 No Refills Comments: Last Taken: 06-30-16 Time: 914 Aspirin (Aspirin*) 81 MG TAB.CHEW 81 Milligram ORAL DAILY Days = 14 No Refills Comments: Last Taken: 06-30-16 Time: 914 Nitroglycerin (Nitrostat) 0.3 MG TAB.SUBL 0.4 Milligram SUBLINGUAL EVERY 5 MINUTES X 3 DOSES as needed for CHEST PAIN Days = 1 No Refills Comments: Last Taken: 06-29-16 Time: 2258 Nitroglycerin (Nitro-Bid) 2 % OINT...G. 1 Gram On the skin EVERY SIX HOURS Days = 1 No Refills Comments: Last Taken: 06-30-16 Time: 0530 Heparin (Heparin-1/2NS 25,000 Units/500) 25,000 UNIT/500 ML (50 UNIT/ML) IV.SOLN 1 Bag INTRAVEN GIVE ONCE Days = 1 No Refills Comments: Last Taken: 06-30-16 Time: 1999 Copies To: JANNA ARIAS; AIDAN PHILLIPS,Chan VALDEZ
[2016-06-30] MEDS ORDERED: ASPIRIN81 M4 PO (07:25)
[2016-06-30] MEDS ORDERED: METOPROLOL TART25 M1 PO (07:25)
[2016-06-30] MEDS ORDERED: ATORVASTATIN CA40 M1 PO (07:25)
--- NOTE | 2016-06-30 07:26 | Patient Discharge Instructions ---
Discharge Instructions General Discharge Information You were seen/treated for: chest pain Special Instructions: Please follow up with your PCP after discharge Please follow up with your elastic attacher zigzag after discharge. Diet Continue normal diet: No Recommended Diet: Heart Healthy, Low Fat Activity Full Activity/No Limits: Yes Acute Coronary Syndrome Inclusion Criteria At DC or during hospital stay patient has or had the following: ACS DIAGNOSIS Yes Discharge Core Measures Meds if any: Prescribed or Continued at Discharge CANDY/ARB if EF <40% No Aspirin Yes Beta-Arnold Yes Statin Yes Meds if any: NOT Prescribed or Continued at Discharge Congestive Heart Failure Inclusion Criteria At DC or during hospital stay patient has or had the following: CHF DIAGNOSIS No Discharge Core Measures Meds if any: Prescribed or Continued at Discharge Meds if any: NOT Prescribed or Continued at Discharge Cerebrovascular accident Inclusion Criteria At DC or during hospital stay patient has or had the following: CVA/TIA Diagnosis No Discharge Core Measures Meds if any: Prescribed or Continued at Discharge Meds if any: NOT Prescribed or Continued at Discharge Venous thromboembolism Inclusion Criteria VTE Diagnosis No VTE Type NONE VTE Confirmed by (Test) NONE Discharge Core Measures - Per Current guidelines, there needs to be overlap - treatment for the first 5 days of Warfarin therapy. - If discharged on Warfarin prior to 5 days of - overlap therapy, the patient will need to be - assessed for post discharge needs including - *Post discharge parental anticoagulation - *Warfarin and/or parental anticoagulation education - *Follow up date to check INR post discharge At least 5 days overlap therapy as Inpatient No Meds if any: Prescribed or Continued at Discharge Note: Overlap Therapy is Warfarin and Anticoagulant Meds if any: NOT Prescribed or Continued at Discharge
[2016-06-30 08:00] VITALS: BP 110/80
[2016-06-30 08:24] LABS: PT 12.1 SEC (9.4-12.5)
[2016-06-30] MEDS ORDERED: HEPARIN-1/25000 UNI1 IV (08:35)
[2016-06-30] MEDS ORDERED: NITROSTAT0.3 M1 SL (08:35)
[2016-06-30] MEDS ORDERED: NITRO-BID1 GM TOP (08:35)
[2016-06-30] MEDS ORDERED: BRILINTA90 M1 PO (09:19)
[2016-06-30 09:26] VITALS: BP 122/84
== END 2016-06-30 10:00 | disposition short-term general hospital (02) | DRG 190 ==
LOC: ENRESERVDT → ENRESERVTM → ERH 12:57 → ERHI 20:07 → CRI 20:07
PROVIDERS: Emergency Medicine; Physician Assistant; Student in an Organized Health Care Education/Training Program; ADMIT Specialist
DX: I21.4 Non-ST elevation (NSTEMI) myocardial infarction (principal); I10 Essential (primary) hypertension; F41.9 Anxiety disorder, unspecified; I47.2 Ventricular tachycardia; Z82.49 Family history of ischemic heart disease and other diseases of the circulatory system; F17.210 Nicotine dependence, cigarettes, uncomplicated
CPT/HCPCS: ERO; 93005; 93010; 96374; 99291; J0360; J1644; J3490

== ENCOUNTER 2018-01-06 12:05 | Emergency (ER) | payer OTHER ==
[~2018-01-06] VITALS: Ht 170.2 cm; Wt 62.6 kg
[~2018-01-06 12:05] MED LIST changes: +ASPIRIN81 M4 PO; +ATORVASTATIN CA40 M1 PO; +BRILINTA90 M1 PO; +HEPARIN-1/25000 UNI1 IV; +METOPROLOL TART25 M1 PO; +NITRO-BID1 GM TOP; +NITROSTAT0.3 M1 SL; +[UNRECOGNIZED DRUG - OTHER] PO
--- NOTE | 2018-01-06 16:27 | ED GENERAL ADULT ---
History of Present Illness General Chief Complaint: Headache Stated Complaint: PEÑALOZA X 3 DAYS Source: patient Exam Limitations: no limitations Vital Signs & Intake/Output Vital Signs & Intake/Output Vital Signs Date Time Temp Pulse Resp B/P B/P Pulse O2 O2 Flow FiO2 Mean Ox Delivery Rate 01/06 1638 Room Air 01/06 1221 98.3 105 18 153/88 98 Room Air Allergies Coded Allergies: NO KNOWN ALLERGIES (06/29/16) Reconcile Medications Alprazolam (Xanax) 1 MG TABLET 1 TAB PO BID ANXIETY (Reported) Amitriptyline HCl 25 GM POWDER 1 TAB PO DAILY DEPRESSION (Reported) Amlodipine Besylate 10 MG TABLET 1 TAB PO DAILY HEART (Reported) HASNT TAKEN SINCE 5 MONTHS Aspirin (Aspirin*) 81 MG TAB.CHEW 81 MG PO DAILY heart health Atorvastatin Calcium 40 MG TABLET 40 MG PO 1700 HLD Heparin (Heparin-1/2NS 25,000 Units/500) 25,000 UNIT/500 ML (50 UNIT/ML) IV.SOLN 1 BAG IV ONCE BLOOD THINNER Metoprolol Tartrate 25 MG TABLET 25 MG PO BID htn Nitroglycerin (Nitrostat) 0.3 MG TAB.SUBL 0.4 MG SL Q 5 MINUTES X 3 DOSE PRN CHEST PAIN Nitroglycerin (Nitro-Bid) 2 % OINT...G. 1 GM TOP Q6 chest pain Ticagrelor (Brilinta) 90 MG TABLET 1 TAB PO BID [facility] Triage Note: 42 YO MALE TO [facility] FOR EVAL OF MIRGANE X2 DAYS WITH +NAUSEA. +PHOTOSENSITIVTY. STATES HAS BEEN TAKING MOTRIN/TYLENOL WITHOUT RELIEF. Triage Nurses Notes Reviewed? yes Onset: yesterday Duration: day(s):, constant, getting worse Severity: severe Severity Numbers: 7 No Modifying Factors: none Associated Symptoms: photophobia, phonophobia, sensitivity to smells HPI: Mr. Connolly is a 42 year old male with a history of Past History Travel History Traveled to [place] past 21 day No Medical History Any Pertinent Medical History? 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 MOTHER (By pass surgery at age 39). grand fathers (Both grand fathers with heart attacks around ages 50). Hx Contributory? Yes Review of Systems Review of Systems Constitutional: Reports: no symptoms. EENTM: Reports: no symptoms. Respiratory: Reports: no symptoms. Cardiovascular: Reports: no symptoms. GI: Reports: no symptoms. Genitourinary: Reports: no symptoms. Musculoskeletal: Reports: no symptoms. Skin: Reports: no symptoms. Neurological/Psychological: Reports: no symptoms, headache. Hematologic/Endocrine: Reports: no symptoms. Immunologic/Allergic: Reports: no symptoms. All Other Systems: Reviewed and Negative Physical Exam Physical Exam General Appearance: well developed/nourished, no apparent distress Head: atraumatic, normal appearance Eyes: Bilateral: normal appearance. Neck: normal inspection Respiratory: normal breath sounds, lungs clear Cardiovascular: regular rate/rhythm Neurologic/Psych: oriented x 3, sr risk management consultant II-XII nml as tested Core Measures ACS in differential dx? No CVA/TIA Diagnosis: No Sepsis Present: No Sepsis Focused Exam Completed? No Progress Differential Diagnoses I considered the following diagnoses in my evaluation of the patient: Migraine headache. Plan of Care: Positive response to medication. Patient is a history of migraine headache further evaluation not indicated at this time. 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
[2018-01-06] MEDS ORDERED: LIPITOR80 M1 PO (17:15)
[2018-01-06] MEDS ORDERED: PROPRANOLOL HCL40 M1 PO (17:16)
[2018-01-06] MEDS ORDERED: WELLBUTRIN XL150 M2 PO (17:17)
[2018-01-06 17:22] VITALS: BP 170/99
== END 2018-01-06 17:23 ==
LOC: ERH 12:05
DX: G43.109 Migraine with aura, not intractable, without status migrainosus (principal); F41.9 Anxiety disorder, unspecified
CPT/HCPCS: 96372; J1200; J1885